=== PATIENT | female | born 1970 | race Caucasian/White ===

== ENCOUNTER 2018-04-20 19:38 | Emergency (ER) | payer OTHER ==
[~2018-04-20] VITALS: Ht 154.9 cm; Wt 52.0 kg
[2018-04-20 19:41] VITALS: BP 131/89
[2018-04-20] MEDS ORDERED: LIDOCAINE 2%, 20ML SQ ONE (20:00)
[2018-04-20] MEDS ORDERED: LIDOCAINE-MPF 1%, 5ML ONE (20:27)
[2018-04-20] MEDS ORDERED: BACITRACIN ZINC OINT 500U/GM, 0.9 GM ONE (20:58)
== END 2018-04-20 21:12 | disposition home or self-care (01) ==
LOC: ED 21:06
DX: S81.812A Laceration without foreign body, left lower leg, initial encounter (principal); S81.012A Laceration without foreign body, left knee, initial encounter; W45.8XXA Other foreign body or object entering through skin, initial encounter; Y93.89 Activity, other specified; Y92.89 Other specified places as the place of occurrence of the external cause; Y99.8 Other external cause status
CPT/HCPCS: 12001; 99283